=== PATIENT | male | born 1940 | race Caucasian/White ===

== ENCOUNTER 2019-02-01 08:40 | Inpatient (IN) | payer OTHER ==
[~2019-02-01] VITALS: Ht 172.7 cm; Wt 73.0 kg
[2019-02-01] VITALS (7 sets, daily range): BP systolic 108–160; BP diastolic 62–98
[2019-02-01 09:12] LABS: ABSOLUTE NEUTROPHILS 7.6 thou/uL (1.4-8.2); BASOPHILS 0.7 % (0.0-2.0); EOSINOPHILS 2.3 % (0.0-3.0); HEMATOCRIT 45.4 % (42.0-52.0); LYMPHOCYTES 17.6 % (24.0-44.0); MCH 30.2 pg (26.0-34.0); MCHC 32.9 g/dL (28.0-37.0); MCV 91.8 fL (80.0-100.0); MONOCYTES 8.4 % (1.0-8.0); PLATELET COUNT 208 thou/uL (150-400); RBC 4.95 mil/uL (4.50-6.00); RDW 14.3 % (10.5-14.5); WBC 10.7 thou/uL (4.0-11.0)
[2019-02-01 09:20] LABS: ANION GAP 11 mmol/L (7-16); BUN 14 mg/dL (7-18); CALCIUM 9.1 mg/dL (8.5-10.1); CHLORIDE 106 mmol/L (98-107); CO2 25 mmol/L (21-32); CREATININE 1.3 mg/dL (0.7-1.3); GLUCOSE 107 mg/dL (74-106); POTASSIUM 3.5 mmol/L (3.5-5.1); SODIUM 142 mmol/L (136-145)
[2019-02-01 09:31] LABS: ALBUMIN 4.1 g/dL (3.4-5.0); SGOT 15 U/L (15-37); SGPT 10 U/L (30-65); TOTAL BILIRUBIN 0.8 mg/dL (<0.1-1.0); TOTAL PROTEIN 7.9 g/dL (6.4-8.2); TROPONIN-I <0.06 ng/mL (<0.06)
--- NOTE | 2019-02-01 12:49 | 2DMMODE ---
[facility] [address] [address] 2 D/M-MODE ECHOCARDIOGRAM Name: CECILY GODFREY Room #: 216-P ADM IN .R.#: [id number] Admission: 02/01/19 Attend Phys: Mykel Wise MD Discharge: Date of : 44 Report #: [id number] THIS REPORT FOR: //name// APPROVED REPORT Study performed: 02/01/2019 11:53:26 EXAM: Comprehensive 2D, Doppler, and color-flow Echocardiogram Patient Location: Echo lab Room #: 216 Status: routine BSA: 1.88 HR: 57 bpm BP: 159/98 mmHg Rhythm: NSR Other Information Study Quality: Adequate Indications COPD CAD SOA 2D Dimensions RVDd: 36.23 mm IVSd: 9.18 (7-11mm) LVOT Diam: 21.83 (18-24mm) LVDd: 54.74 mm PWd: 9.21 (7-11mm) Ascending Ao: 30.69 (22-36mm) LVDs: 45.69 (25-40mm) Aortic Root: 27.86 mm IVC: 25.00 mm Volumes Left Atrial Volume (Systole) Single Plane 4CH: 53.68 mL Single Plane 2CH: 62.23 mL LA ESV Index: 32.00 mL/m2 Aortic Valve AoV Peak Vince.: 1.24 m/s AO Peak Gr.: 6.12 mmHg LVOT Max P.96 mmHg LVOT Max V: 0.86 m/s [place] Vmax: 2.60 cm2 AI Vmax: 4.54 m/s AI [place]: 2.50 m/s2 AI PHT: 526.05 ms [facility] [address] [address] 2 D/M-MODE ECHOCARDIOGRAM Name: YADIEL GODFREYIN Room #: 216-P [facility] IN [facility].#: [id number] Admission: 02/01/19 Attend Phys: Mykel Wise MD Discharge: Date of : 44 Report #: [id number] Mitral Valve E/A Ratio: 2.6 MV Decel. Time: 203.22 ms MV E Max Vince.: 0.95 m/s MV A Vince.: 0.37 m/s MV PHT: 58.93 ms IVRT: 93.43 ms Pulmonary Valve PV Peak Vince.: 1.08 m/s PV Peak Gr.: 4.67 mmHg Pulmonary Vein P Vein S: 0.38 m/s P Vein A: 0.38 m/s P Vein D: 0.71 m/s P Vein A Dur.: 133.8 msec P Vein S/D Ratio: 0.54 Tricuspid Valve TR Peak Vince.: 3.44 m/s RAP Estimate: 10.00 mmHg TR Peak Gr.: 47.41 mmHg PA Pressure: 57.00 mmHg Left Ventricle Left ventricle is at the upper limits of normal. Global hyopkinesis with akinetic mid and basal lateral eduardo. There is normal left ventricular wall thickness. Left ventricular systolic function is moderately decreased. LVEF is 35%. Severe diastolic dysfunction is present (restrictive filling). Right Ventricle The right ventricle is normal size. The right ventricular systolic function is normal. Atria Left atrium is at the upper limits of normal. Right atrium is mildly dilated. Aortic Valve The aortic valve is normal in structure. Mild aortic regurgitation. There is no aortic valvular stenosis. Mitral Valve The mitral valve is normal in structure. Moderate to severe mitral regurgitation No evidence of mitral valve stenosis. Tricuspid Valve [facility] [address] [place] [address] 2 D/M-MODE ECHOCARDIOGRAM Name: CECILY GODFREY Room #: 216-P [facility] IN .R.#: [id number] Admission: 02/01/19 Attend Phys: Mykel Wise MD Discharge: Date of : 44 Report #: [id number] The tricuspid valve is normal in structure. Mild tricuspid regurgitation. PAP is estimated at 57 mmHg. Pulmonic Valve Pulmonic valve is not well visualized. Great Vessels The aortic root is normal in size. IVC is dilated and collapses >50% with inspiration. Pericardium There is no pericardial effusion. <Conclusion> Left ventricle is at the upper limits of normal. LVEF is 35%. Global hyopkinesis with akinetic mid and basal lateral eduardo. Left atrium is at the upper limits of normal. Right atrium is mildly dilated. The aortic valve is normal in structure. Mild aortic regurgitation. The mitral valve is normal in structure. Moderate to severe mitral regurgitation The tricuspid valve is normal in structure. Mild tricuspid regurgitation. PAP is estimated at 57 mmHg. There is no pericardial effusion. <ELECTRONICALLY SIGNED> By: Hans Chandra MD 02/01/19 1248 1248 [id number] Hans Chandra MD /INF
--- NOTE | 2019-02-01 17:46 | NUR ---
VSS REMAINS NSR LUNGS DIMINISHED, O2 SAT RA IS 97%, UP IN ROOM WITHOUT C/O CHEST PAIN SOB. PT AWARE NPO PAST MN FOR TST IN AM. WILL CONTINUE TO MONITER AND CARE FOR PT PER PLAN OF CARE
[2019-02-02 03:06] LABS: GLYCOHEMOGLOBIN (HGB A1C) 5.4 % (4.8-5.6)
--- NOTE | 2019-02-02 04:42 | NUR ---
ASSUMED PT CARE AT 1900. PT C/O NO PAIN. PT SOB AND COUGHING AROUND 0400. CALLED PHYSICIAN JUNIOR ACCOUNTANT AND GOT ORDERS FOR RESPIRATORY AND COUGH SUPPRESSANT. PT NPO AT MIDNIGHT FOR STRESS TEST. PT VSS THRU SHIFT. WILL CONTINUE TO MONITOR PT PER POC.
[2019-02-02 04:45] VITALS: BP 121/72
[2019-02-02 05:42] LABS: CHOLESTEROL 167 mg/dL (<200); HDL CHOLESTEROL 36 mg/dL (>40); LDL CHOLESTEROL 117 mg/dL (<100); SERUM ASSESSMENT Clear; TC:HDL 4.6 Ratio (Not establshd); TRIGLYCERIDE 71 mg/dL (<150); VLDL 14 mg/dL (<40)
[2019-02-02 07:31] VITALS: BP 125/75
[2019-02-02 11:56] VITALS: BP 132/69
--- NOTE | 2019-02-02 14:05 | EKG ---
[address] [address] ELECTROCARDIOGRAM REPORT Name: CECILY GODFREY Room #: 216-P ADM IN M.R.#: [id number] Admission: 02/01/19 Attend Phys: Mykel Wise MD Discharge: Date of : 44 Report #: [id number] THIS REPORT FOR: //name// [facility] ED Test Date: 2019-02-01 Test Time: 09:31:56 Pat Name: CECILY GODFREY Department: Room: 216 Gender: M Predatory Animal Exterminator: jllorene : 1940 Requested By: Sj Kirby Order Number: [id number] MD: Charles Hemphill Measurements Intervals [place] Rate: 63 P: 68 [place]: 155 QRS: 29 QRSD: 100 T: 65 QT: 423 QTc: 434 Interpretive Statements Sinus rhythm Borderline low voltage, extremity leads No previous ECG available for comparison Electronically Signed On 02-02-2019 14:05:06 CDT by Charles Hemphill [email or web address] <ELECTRONICALLY SIGNED> By: Charles Hemphill MD 02/02/19 1405 0931 0 Charles Hemphill MD /JERMAINE
--- NOTE | 2019-02-02 14:14 | EKG ---
[address] [address] ELECTROCARDIOGRAM REPORT Name: YADIEL GODFREYIN Room #: 216-P ADM IN M.R.#: [id number] Admission: 02/01/19 Attend Phys: Mykel Wise MD Discharge: Date of : 44 Report #: [id number] THIS REPORT FOR: //name// [facility] Test Date: 2019-02-02 Test Time: 07:09:57 Pat Name: CECILY GODFREY Department: Room: 216 P Gender: M Residential Solar Sales Consultant: DAVIDSON : 1940 Requested By: Maryan Dietrich Order Number: [id number] MD: Charles Hemphill Measurements Intervals [place] Rate: 56 P: 71 [place]: 160 QRS: 8 QRSD: 98 T: 83 QT: 452 QTc: 437 Interpretive Statements Sinus rhythm Low voltage, extremity leads No previous ECG available for comparison Electronically Signed On 02-02-2019 14:13:42 CDT by Charles Hemphill [email or web address] <ELECTRONICALLY SIGNED> By: Charles Hemphill MD 02/02/19 1413 0709 8 Charles Hemphill MD /JERMAINE
--- NOTE | 2019-02-02 14:39 | NUR ---
VSS REMAINS NSR, BP STABLE. LUNGS REMAIN DIMINISHED WITH INTERMITENT WHEEZES, SOME NON PRODUCTIVE COUGH. NO C/O CHESTPAIN OR SOB TODAY WHILE UP IN ROOM. HAD NM TST TEST AND CT CHEST. STEADY ON FEET. APPETITE 100%. WILL CONTINUE TO MONITER AND CARE FOR PT PER PLANOF CARE
[2019-02-02 16:59] VITALS: BP 140/76
[2019-02-02 19:40] VITALS: BP 108/84
[2019-02-03] VITALS (15 sets, daily range): BP systolic 104–165; BP diastolic 55–93
--- NOTE | 2019-02-03 05:08 | NUR ---
ASSUMED PT CARE AT 1900. PT VSS. PT C/O NO PAIN. PT DID HAVE A MOMENT OF COUGHING SO PRN COUGH MEDICATION PROVIDED. PT NPO AT MIDNIGHT FOR POSSIBLE CATH TODAY. PT SLEPT THRU NIGHT WITH NO PROBLEM. WILL CONTINUE TO MONITOR PT PER POC.
[2019-02-03 05:25] LABS: ABSOLUTE NEUTROPHILS 6.1 thou/uL (1.4-8.2); EOSINOPHILS 3.2 % (0.0-3.0); HEMATOCRIT 37.3 % (42.0-52.0); LYMPHOCYTES 24.9 % (24.0-44.0); MCH 30.1 pg (26.0-34.0); MCHC 32.9 g/dL (28.0-37.0); MCV 91.5 fL (80.0-100.0); MONOCYTES 9.4 % (1.0-8.0); PLATELET COUNT 195 thou/uL (150-400); POLYS 61.5 % (36.0-66.0); RBC 4.08 mil/uL (4.50-6.00); RDW 14.2 % (10.5-14.5); WBC 9.8 thou/uL (4.0-11.0)
[2019-02-03 05:34] LABS: HEMOGLOBIN 12.3 gm/dL (14.0-18.0)
[2019-02-03 05:44] LABS: CREATININE 1.3 mg/dL (0.7-1.3); POTASSIUM 4.1 mmol/L (3.5-5.1)
--- NOTE | 2019-02-03 17:39 | NUR ---
ASSESSMENT CHARTED. PT ALERT AND ORIENTED. HAD CARDIAC CATH THIS AM WITH NO INTERVENTION. RIGHT GROIN INCISION C/D/I. NO HEMATOMA NOTED. VSS. PT DENIED HAVING PAIN OR DISCOMFORT. NO CONCERNS AT THIS TIME. WILL CONTINUE TO MONITOR.
[2019-02-04 03:47] VITALS: BP 112/66
--- NOTE | 2019-02-04 05:28 | NUR ---
ASSESSMENT DOCUMENTED.PT BEEN RESTING IN NO ACUTE DISTRESS.S/P CARDIAC CHAIM W/O INTERVENTIONS.RIGHT GROIN W/O HEMATOMA.DRESSING CDI.ON RA W/O RESPIRATORY DISTRESS.POC IS TO GO HOME TODAY.
[2019-02-04 08:05] VITALS: BP 150/84
[2019-02-04 11:27] VITALS: BP 171/82
[2019-02-04] MEDS ORDERED: COREG6.25 MG PO (12:26)
[2019-02-04] MEDS ORDERED: LISINOPRIL10 MG PO (12:27)
[2019-02-04] MEDS ORDERED: ASPIR 8181 MG PO (12:28)
[2019-02-04] MEDS ORDERED: BREO ELLIPTA 11 EACH INH (12:32)
--- NOTE | 2019-02-04 13:35 | NUR ---
Chart reviewed and discussed with the care team. The pt is dcing home today and will need open heart surgery in the near future after he has a lung biopsy. The pt is indep with gait, adl's and IADLs. He drives and lives with a friend and his son. He has three steps to enter the home and then 12 up to his bedroom. No cm interventions indicated at this time. Pt dcing to outpt f/u.
[2019-02-04 14:44] VITALS: BP 171/82
--- NOTE | 2019-02-11 14:54 | CATHLAB ---
[facility] [address] [place] [address] INVASIVE PROCEDURE REPORT Name: CECILY GODFREY Room #: 202-P [facility] IN .R.#: [id number] Admission: 02/01/19 Attend Phys: Mykel Wise MD Discharge: 02/04/19 Date of : 44 Report #: [id number] THIS REPORT FOR: //name// APPROVED REPORT Study performed: 02/03/2019 10:22:11 Patient Details Patient Status: Out-Patient Room #: The patient is a 78 year-old male Event Personnel Hans Chandra Tie Up Worker, Nancy Alegre RN, Nasim Norwood, Don Robles RTR Scrub, Cristóbal Ga RTR Scrub Procedures Performed Left Heart Cath w/or w/o Coronaries [id number] [facility], supervision of conscious sedation Indication Chest pain Procedure Narrative The Right Groin^ was infiltrated with 1% Lidocaine subcutaneous anesthesia. A PINNACLE 4FR Sheath #[id number] sheath was inserted into the RFA^. Coronary angiography was performed using coronary diagnostic catheters. The right coronary system was accessed and visualized with a JR4 catheter. The left coronary system was accessed and visualized with a JL4 catheter. The left ventricle was accessed and visualized with a PIGTAIL catheter. Left ventricular/Aortic Valve gradient assessed via catheter pullback. Hemostasis was obtained with manual pressure following sheath removal without any complications. The patient tolerated the procedure well and there were no complications associated with the procedure. There was no hematoma. Intraoperative Conscious Sedation Sedation start time: 10.44 Case end Time: 11.11 Versed 2 mg Fluoro Time: 3.50 minutes Dose: DAP 5308.00 cGycm2 843 mGy Contrast Type and Amount: Omnipaque 65 ml [facility] [place] [address] INVASIVE PROCEDURE REPORT Name: CECILY GODFREY Room #: 202-P [facility] [id number] Admission: 02/01/19 Attend Phys: Mykel Wise MD Discharge: 02/04/19 Date of : 44 Report #: [id number] Coronary Angiography The patient's coronary anatomy is right dominant. Diagnostic Cath Left Main Normal origin moderate size with mild irregularities throughout its course. There is a proximal taper date is not flow-limiting. It bifurcates left anterior descending left circumflex. LAD Moderate caliber type III vessel which has a proximal stent involving a first diagonal branch. There is moderate restenosis of the stent of approximately 75% proximally. The distal portion of the stent at the site of the first diagonal is 60-50% stenosis. The first diagonal origin is subtotally occluded with a poststenotic dilatation. The vessel itself is less than half a millimeter in diameter and has moderate mid vessel lesions. The LAD proper then continues in the anterior interventricular sulcus to the distal third where there is a 90% proximal lesion followed by a 90% distal portion of the distal third of the LAD. Diagonal 1 Small caliber vessel arising at a 90 angle from the distal portion of the LAD stent. The ostial lesion is at least 90% followed by poststenotic dilatation. The vessel itself and courses along the anterolateral wall with a 50% midcourse lesion. The vessel is 0.5 mm or less in diameter Circumflex Moderate caliber vessel week is rising early marginal branch which is small in diameter and diffusely diseased. The vessel then continues in the AV groove giving rise to a second marginal branch which is felt totally occluded and fills as a ghost vessel appearing is a string forgetting in its mid course the circumflex then continues on as a diminutive vessel of less than half a millimeter diameter giving rise to small posterior wall branches with moderate diffuse disease Right Coronary Moderate to large caliber vessel normal origin. The proximal portion has a 50% narrowing with an accentuated 60% at the right atrial branch. The vessel then continues to the acute margin where bifurcates a having a small caliber RV marginal branch with a 70% ostial lesion and continues RCA in the AV groove to the crux of the heart. After the crux of the heart is an eccentric 70-80% lesion. The vessel then bifurcates into the posterior descending artery and a small to moderate posterior lateral branch with an ostial lesion. The posterior descending artery is moderate in caliber tortuous in course in the posterior interventricular sulcus within ostial lesion noted R PDA Small to moderate caliber vessel with a proximal eccentric 40-50% lesion and continues in the posterior interventricular sulcus towards the apex tapering in its course without high-grade lesion [address] [address] INVASIVE PROCEDURE REPORT Name: CECILY GODFREY Room #: 202-P DIS IN M.R.#: [id number] Admission: 02/01/19 Attend Phys: Mykel Wise MD Discharge: 02/04/19 Date of : 44 Report #: [id number] Left Ventriculography Left Ventriculography was not performed. Hemodynamics The aortic pressure is 162/72 mmHg with a mean of 96 mmHg. The left ventricular pressure is 146/13 mmHg with a mean of mmHg. The left ventricular end diastolic pressure is 28 mmHg. There was no gradient across the aortic valve upon pullback. Pullback from the left ventricle to the aorta revealed no gradient across the aortic valve. Conclusion 1. Coronary disease, severe, multivessel . Abnormal urinalysis elevated left ventricle end-diastolic pressures Recommendations Cardiac Risk Reduction Program Aggressive Medical Therapy 1. In view of the patient having pulmonary nodules and pulmonary evaluation for malignancy is in the process I'm going to optimize medical regimen. The plan will be if indeed today lesions are not cancerous then consultation for coronary bypass surgery would be appropriate initial evaluation. If on the other hand if the lesions are malignancy and percutaneous revascularization in a staged manner would be appropriate. This is been discussed with the patient <ELECTRONICALLY SIGNED> By: Hans Chandra MD 02/11/19 1453 1453 145 Hans Chandra MD /INF
== END 2019-02-04 15:29 | disposition home or self-care (01) | DRG 286 ==
LOC: ER 08:40 → EROBS 11:28 → 2N 11:28 → ENTRNSPT 02-04 15:10 → 2N 02-04 15:29
PROVIDERS: Emergency Medicine; Nurse Practitioner; ADMIT Hospitalist
PROC: B2111ZZ Fluoroscopy of Multiple Coronary Arteries using Low Osmolar Contrast (ICD-10-PCS; principal; 2019-02-03)
PROC: 4A023N7 Measurement of Cardiac Sampling and Pressure, Left Heart, Percutaneous Approach (ICD-10-PCS; principal; 2019-02-03)
DX: I25.10 Atherosclerotic heart disease of native coronary artery without angina pectoris (principal); I50.43 Acute on chronic combined systolic (congestive) and diastolic (congestive) heart failure; I38 Endocarditis, valve unspecified; F17.210 Nicotine dependence, cigarettes, uncomplicated; E78.5 Hyperlipidemia, unspecified; J44.9 Chronic obstructive pulmonary disease, unspecified; E53.8 Deficiency of other specified B group vitamins; R91.1 Solitary pulmonary nodule; R59.1 Generalized enlarged lymph nodes; J84.10 Pulmonary fibrosis, unspecified; Z95.5 Presence of coronary angioplasty implant and graft; Z71.6 Tobacco abuse counseling; Z82.49 Family history of ischemic heart disease and other diseases of the circulatory system; Z83.3 Family history of diabetes mellitus; Z90.49 Acquired absence of other specified parts of digestive tract; Z79.82 Long term (current) use of aspirin; Z79.899 Other long term (current) drug therapy
CPT/HCPCS: 10081

== ENCOUNTER → 2019-03-31 | Outpatient (CLI) | payer OTHER ==
[~2019-03-31] MED LIST: ASPIR 8181 MG PO; BREO ELLIPTA 11 EACH INH; COREG6.25 MG PO; LISINOPRIL10 MG PO
== END ==
LOC: PET 12:08
DX: R91.1 Solitary pulmonary nodule (principal); I71.4 Abdominal aortic aneurysm, without rupture; J43.9 Emphysema, unspecified

== ENCOUNTER → 2019-05-11 | Outpatient (CLI) | payer OTHER | LOC: SJCVC 13:29 | DX: R91.8 Other nonspecific abnormal finding of lung field (principal); I25.10 Atherosclerotic heart disease of native coronary artery without angina pectoris; F17.200 Nicotine dependence, unspecified, uncomplicated; Z79.82 Long term (current) use of aspirin; Z79.899 Other long term (current) drug therapy ==

== ENCOUNTER → 2019-06-16 | Outpatient (CLI) | payer OTHER | LOC: SJCVC 15:02 | DX: I25.10 Atherosclerotic heart disease of native coronary artery without angina pectoris (principal); F17.200 Nicotine dependence, unspecified, uncomplicated; Z79.82 Long term (current) use of aspirin; Z79.899 Other long term (current) drug therapy ==

== ENCOUNTER → 2019-09-09 | Outpatient (CLI) | payer OTHER | LOC: SJCVC 12:35 | PROVIDERS: ATTEND Internal Medicine | DX: I25.10 Atherosclerotic heart disease of native coronary artery without angina pectoris (principal); I11.0 Hypertensive heart disease with heart failure; I50.32 Chronic diastolic (congestive) heart failure; E78.5 Hyperlipidemia, unspecified; J44.9 Chronic obstructive pulmonary disease, unspecified; F17.200 Nicotine dependence, unspecified, uncomplicated; Z79.899 Other long term (current) drug therapy ==

== ENCOUNTER → 2020-10-23 | Outpatient (CLI) | payer OTHER | LOC: SJCVC 10:15 | PROVIDERS: ATTEND Internal Medicine | DX: R94.31 Abnormal electrocardiogram [ECG] [EKG] (principal); I25.2 Old myocardial infarction; I25.10 Atherosclerotic heart disease of native coronary artery without angina pectoris; E78.5 Hyperlipidemia, unspecified; F17.200 Nicotine dependence, unspecified, uncomplicated; I10 Essential (primary) hypertension; I48.0 Paroxysmal atrial fibrillation; J44.9 Chronic obstructive pulmonary disease, unspecified; I34.0 Nonrheumatic mitral (valve) insufficiency; I27.20 Pulmonary hypertension, unspecified; D72.829 Elevated white blood cell count, unspecified; F14.10 Cocaine abuse, uncomplicated; Z79.82 Long term (current) use of aspirin; Z79.899 Other long term (current) drug therapy; Z72.89 Other problems related to lifestyle ==

== ENCOUNTER 2021-01-12 10:16 | Emergency (ER) | payer OTHER ==
[~2021-01-12] VITALS: Ht 172.7 cm; Wt 72.6 kg
[2021-01-12 10:20] VITALS: BP 164/80
== END 2021-01-12 11:11 | disposition home or self-care (01) ==
LOC: ER 10:16
PROVIDERS: Student in an Organized Health Care Education/Training Program
DX: U07.1 COVID-19 (principal); E78.5 Hyperlipidemia, unspecified; J44.9 Chronic obstructive pulmonary disease, unspecified; F17.210 Nicotine dependence, cigarettes, uncomplicated; Z88.8 Allergy status to other drugs, medicaments and biological substances